=== PATIENT | male | born 1955 | race Caucasian/White ===

== ENCOUNTER → 2019-11-23 | Day surgery (SDC) | payer BC, OTHER ==
[2019-11-13 11:06] LABS: BASOPHILS % 0.8 % (0.0-1.0); EOSINOPHILS # (AUTO) 0.2 (0.0-0.4); HEMATOCRIT 40.9 % (38.2-49.6); HEMOGLOBIN 13.6 g/dL (14.0-18.0); LYMPHOCYTES # (AUTO) 0.8 (1.0-3.2); LYMPHOCYTES % 14.7 % (18.0-39.1); MEAN CORPUSCULAR HEMOGLOBIN 30.2 pg (28-32); MEAN CORPUSCULAR HGB CONC 33.3 g/dL (31-35); MEAN CORPUSCULAR VOLUME 90.7 fL (81-99); MONOCYTES # (AUTO) 0.6 (0.2-0.8); MONOCYTES % 11.9 % (4.4-11.3); NEUTROPHILS # (AUTO) 3.7 (2.1-6.9); NEUTROPHILS % 69.2 % (38.7-80.0); PLATELET COUNT 166 x10e3/uL (140-360); RED BLOOD COUNT 4.51 x10e6/uL (4.3-5.7); RED CELL DISTRIBUTION WIDTH 13.8 % (11.7-14.4)
[2019-11-13 11:24] LABS: ANION GAP 12.2 mmol/L (8-16); BLOOD UREA NITROGEN 11 mg/dL (7-26); BUN/CREATININE RATIO 11 (6-25); CALCIUM 9.7 mg/dL (8.4-10.2); CARBON DIOXIDE 28 mmol/L (22-29); CHLORIDE 101 mmol/L (98-107); CREATININE, SERUM 1.03 mg/dL (0.72-1.25); EST GLOMERULAR FILTRATION RATE > 60 ML/MIN (60-); GLUCOSE 114 mg/dL (74-118); POTASSIUM 4.2 mmol/L (3.5-5.1); SODIUM 137 mmol/L (136-145)
--- NOTE | 2019-11-13 12:18 | Diagnostic Imaging Report ---
Exam: CHEST 2 VIEWS Date: 11/13/2019 12:14 PM INDICATION: ^[id number] ^1140 ^PRE-OP Comparison: None FINDINGS: Lines/Tubes:None Lungs:The lungs are well inflated. No focal consolidation or pulmonary edema. Right hemidiaphragm is elevated with linear scarring versus atelectasis at the right lung base. Pleura:No pleural effusion. No pneumothorax. Heart/Mediastinum:The cardiomediastinal silhouette is normal in size and contour. Bones/Soft Tissues: No acute osseous abnormality. Moderate multilevel degenerative changes of the spine are noted. Upper abdomen: Unremarkable. IMPRESSION: Negative for focal consolidation. Right hemidiaphragm is elevated. Questionable 9 mm area of scarring versus nodularity at the right apex. Consider obtaining any prior imaging for comparison versus obtaining a nonemergent CT of the chest for further evaluation. Signed by: Paulo Hardy MD on 11/13/2019 12:15 PM
[~2019-11-23] MED LIST: ATORVASTATIN CA20 MG PO; BUPIVACAINE 0.25%/EPI 30ML SDV INJ ONE; DEXAMETHASONE SOD PHOS INJ 4 MG/ML VIAL ONE; EPHEDRINE SULFATE INJ 50 MG/ML VIAL ONE; FENTANYL CITRATE/PF 100MCG/2 ML INJ ONE; GLYCOPYRROLATE INJ 0.2 MG/ML VIAL ONE; HYDROCHLOROTHIA25 MG PO; KETAMINE HCL INJ 50 MG/ML 10 ML VIAL ONE; LEVOTHYROXINE112 MCG PO; LEXAPRO10 MG PO; LIDOCAINE HCL 1% LOCAL INJ 20 ML VIAL ONE; LIDOCAINE HCL 2% LOCAL INJ 5 ML SDV VIAL INJ ONE; LOSARTAN POTASS50 MG PO; MIDAZOLAM HCL 2 MG/2 ML VIAL ONE; NEOSTIGMINE 1 MG/ML 10ML VIAL ONE; ONDANSETRON HCL INJ 2MG/ML 2ML 2 MG/ML VIAL ONE; PROPOFOL IV EMULSION 10 MG/ML 20 ML VIAL ONE; PROTONIX20 MG PO; ROCURONIUM BROMIDE 10 MG/ML 5ML VIAL IV ONE; SEVOFLURANE INHAL SOLN 250 ML PEN BTL ONE; SUCCINYLCHOLINE CHLORIDE 20 MG/ML 10ML VIAL ONE
--- NOTE | 2019-11-23 07:20 | NUR ---
SPIRITUAL CARE - Pre-Surgery Assessment: Pt reported supportive attention from family and friends. Intervention: Gas System Operator provided pastoral presence, hospitality, and sympathetic listening. Acquainted pt with availability of brush polisher while hospitalized. Outcome: Pt expressed appreciation for visit. No need for follow up indicated at this time. SYL Perez Spiritual Care Department O: [phone]
--- NOTE | 2019-11-23 11:32 | Operative Report ---
DATE OF PROCEDURE: 11/23/2019 SURGEON: Shoaib Lima MD PREOPERATIVE DIAGNOSIS: Right inguinal hernia. POSTOPERATIVE DIAGNOSIS: Right direct inguinal hernia. OPERATION PERFORMED: Repair of right direct inguinal hernia. RESEARCH ENVIRONMENTAL ENGINEER: ARLET Castro. ANESTHESIA: General. COMPLICATIONS: None. ESTIMATED BLOOD LOSS: Minimal. DESCRIPTION OF PROCEDURE: With the patient lying in bed in the supine position under good general anesthesia, the abdomen was prepped with Betadine solution and draped in the usual manner. A right inguinal incision was made, it was carried down through the subcutaneous tissue down to the external oblique aponeurosis. External oblique was opened along the length of its fibers and the external inguinal ring was opened. The cord was then mobilized and retracted. Examination of the cord revealed a small lipoma of the cord, which was ligated with 3-0 Vicryl and divided. There was no indirect hernia sac present. There was, however, a complete blow out of the direct space from a large bulging direct hernia. The direct defect was then imbricated with a pursestring suture of 0 Ethibond. After this was done, the preperitoneal space was then entered right through the internal ring and a pocket was created without any difficulty. An extended Prolene hernia system was placed in the preperitoneal space and the underlay patch was deployed without any problems. The overlay patch was then placed over the floor and split inferolaterally to allow for passage of the cord. The mesh was then sutured to the conjoined tendon and the inguinal ligament using interrupted sutures of 2-0 Vicryl. The whole area was irrigated. Perfect hemostasis was ascertained. All layers were infiltrated on the way out with solution of 0.25% Marcaine and 1% lidocaine mixed in equal parts. The external oblique aponeurosis was closed with a running suture of 2-0 Vicryl, the subcutaneous tissue was approximated with 3-0 plain, and the skin was closed with clips. A dressing was applied. The sponge, lap, and needle counts were correct. The patient tolerated the procedure well and returned to the recovery room in stable condition. MD PATRICIA RamirezR/MODL /[id number]
[2019-11-23 11:55] VITALS: BP 124/71
== END | disposition home or self-care (01) ==
LOC: OR 07:00
PROVIDERS: ATTEND Surgery
DX: K40.90 Unilateral inguinal hernia, without obstruction or gangrene, not specified as recurrent (principal); D17.6 Benign lipomatous neoplasm of spermatic cord; G47.33 Obstructive sleep apnea (adult) (pediatric); I10 Essential (primary) hypertension; E03.9 Hypothyroidism, unspecified; Z01.810 Encounter for preprocedural cardiovascular examination; Z01.812 Encounter for preprocedural laboratory examination; Z01.818 Encounter for other preprocedural examination; Z11.59 Encounter for screening for other viral diseases; Z92.21 Personal history of antineoplastic chemotherapy; Z92.3 Personal history of irradiation
CPT/HCPCS: 36415; 49505; 71046; 80048; 85025; 93005; C1781; J0330; J1100; J2001 ×2; J2250; J2405; J2704; J2710; J3010; U0002 ×2

== ENCOUNTER → 2020-01-02 | Outpatient (CLI) | payer BC, MEDICARE ==
[~2020-01-02] MED LIST changes: +BENICAR20 MG PO; -BUPIVACAINE 0.25%/EPI 30ML SDV INJ ONE; -DEXAMETHASONE SOD PHOS INJ 4 MG/ML VIAL ONE; -EPHEDRINE SULFATE INJ 50 MG/ML VIAL ONE; -FENTANYL CITRATE/PF 100MCG/2 ML INJ ONE; -GLYCOPYRROLATE INJ 0.2 MG/ML VIAL ONE; -KETAMINE HCL INJ 50 MG/ML 10 ML VIAL ONE; -LIDOCAINE HCL 1% LOCAL INJ 20 ML VIAL ONE; -LIDOCAINE HCL 2% LOCAL INJ 5 ML SDV VIAL INJ ONE; -MIDAZOLAM HCL 2 MG/2 ML VIAL ONE; -NEOSTIGMINE 1 MG/ML 10ML VIAL ONE; -ONDANSETRON HCL INJ 2MG/ML 2ML 2 MG/ML VIAL ONE; -PROPOFOL IV EMULSION 10 MG/ML 20 ML VIAL ONE; -ROCURONIUM BROMIDE 10 MG/ML 5ML VIAL IV ONE; -SEVOFLURANE INHAL SOLN 250 ML PEN BTL ONE; -SUCCINYLCHOLINE CHLORIDE 20 MG/ML 10ML VIAL ONE; +ZETIA10 MG PO
== END ==
LOC: CT 13:45
PROVIDERS: ATTEND Surgery
DX: R91.8 Other nonspecific abnormal finding of lung field (principal); Z20.828 Contact with and (suspected) exposure to other viral communicable diseases
CPT/HCPCS: 71250; U0002

== ENCOUNTER → 2020-01-05 | Day surgery (SDC) | payer MEDICARE, BC, OTHER ==
[2020-01-02 15:10] LABS: BASOPHILS # (AUTO) 0.1 (0.0-0.1); BASOPHILS % 0.9 % (0.0-1.0); EOSINOPHILS # (AUTO) 0.2 (0.0-0.4); EOSINOPHILS % 3.8 % (0.0-6.0); HEMATOCRIT 40.9 % (38.2-49.6); HEMOGLOBIN 13.6 g/dL (14.0-18.0); LYMPHOCYTES # (AUTO) 0.8 (1.0-3.2); LYMPHOCYTES % 13.4 % (18.0-39.1); MEAN CORPUSCULAR HEMOGLOBIN 30.6 pg (28-32); MEAN CORPUSCULAR HGB CONC 33.3 g/dL (31-35); MEAN CORPUSCULAR VOLUME 91.9 fL (81-99); MONOCYTES # (AUTO) 0.7 (0.2-0.8); MONOCYTES % 12.5 % (4.4-11.3); NEUTROPHILS # (AUTO) 3.9 (2.1-6.9); PLATELET COUNT 153 x10e3/uL (140-360); RED BLOOD COUNT 4.45 x10e6/uL (4.3-5.7); RED CELL DISTRIBUTION WIDTH 13.2 % (11.7-14.4)
--- NOTE | 2020-01-02 15:19 | Diagnostic Imaging Report ---
Exam: CHEST 2 VIEWS Date: 01/02/2020 3:15 PM INDICATION: ^[id number] ^1500 ^PRE OP Comparison: 11/13/[address] chest performed the same day FINDINGS: Lines/Tubes:None Lungs:The lungs are well inflated. No focal consolidation or pulmonary edema. Stable right hemidiaphragm elevation Pleura:No pleural effusion. No pneumothorax. Stable questionable nodularity in the right apex. Heart/Mediastinum:The cardiomediastinal silhouette is normal in size and contour. Bones/Soft Tissues: No acute osseous abnormality. Upper abdomen: Unremarkable. IMPRESSION: Stable exam without acute intrathoracic process. Please see CT report of the same day for further details. Signed by: Paulo Hardy MD on 01/02/2020 3:16 PM
[2020-01-02 15:31] LABS: ANION GAP 12.9 mmol/L (8-16); BLOOD UREA NITROGEN 12 mg/dL (7-26); BUN/CREATININE RATIO 14 (6-25); CALCIUM 9.2 mg/dL (8.4-10.2); CARBON DIOXIDE 26 mmol/L (22-29); CHLORIDE 104 mmol/L (98-107); CREATININE, SERUM 0.86 mg/dL (0.72-1.25); EST GLOMERULAR FILTRATION RATE > 60 ML/MIN (60-); GLUCOSE 125 mg/dL (74-118); POTASSIUM 3.9 mmol/L (3.5-5.1); SODIUM 139 mmol/L (136-145)
[~2020-01-05] MED LIST changes: +ATROPINE SULFATE 1 MG/ML VIAL ONE; +BUPIVACAINE 0.25% 30ML SDV INJ ONE; +DEXAMETHASONE SOD PHOS INJ 4 MG/ML VIAL ONE; +FENTANYL CITRATE/PF 100MCG/2 ML INJ ONE; +KETOROLAC TROMETHAMINE 30 MG/ML VIAL ONE; +LIDOCAINE 1% W/EPINEPHRINE 20 ML VIAL ONE; +LIDOCAINE HCL 2% LOCAL INJ 5 ML SDV VIAL INJ ONE; +MIDAZOLAM HCL 2 MG/2 ML VIAL ONE; +NEOSTIGMINE 1 MG/ML 10ML VIAL ONE; +ONDANSETRON HCL INJ 2MG/ML 2ML 2 MG/ML VIAL ONE; +PROPOFOL IV EMULSION 10 MG/ML 20 ML VIAL ONE; +ROCURONIUM BROMIDE 10 MG/ML 5ML VIAL IV ONE; +SEVOFLURANE INHAL SOLN 250 ML PEN BTL ONE
--- NOTE | 2020-01-05 07:20 | NUR ---
SPIRITUAL CARE - Pre-Surgery Assessment: Pt in bed. Pt's at bedside. Pt reported supportive attention from family and friends. Intervention: Tail Worker provided pastoral presence, hospitality, and sympathetic listening. Acquainted pt with availability of early childhood assistant while hospitalized. Outcome: Pt expressed appreciation for visit. No need for follow up indicated at this time. SYL Esparzalain Spiritual Care Department O: [phone]
[2020-01-05 11:40] VITALS: BP 127/86
--- NOTE | 2020-01-05 11:44 | Operative Report ---
DATE OF PROCEDURE: 01/05/2020 SURGEON: Shoaib Lima MD PREOPERATIVE DIAGNOSES: Left inguinal hernia and umbilical hernia. POSTOPERATIVE DIAGNOSES: Left inguinal hernia and umbilical hernia. OPERATIONS PERFORMED: Repair of left inguinal hernia with extended Prolene Hernia System and repair of umbilical hernia with mesh. ANESTHESIA: General. COMPLICATIONS: None. ESTIMATED BLOOD LOSS: Minimal. DESCRIPTION OF PROCEDURE: With the patient lying in bed in the supine position under good general anesthesia, the abdomen was prepped with Betadine solution and draped in the usual manner. A left inguinal incision was made. It was carried down through the subcutaneous tissue down to the external oblique aponeurosis. External oblique was then opened along the length of its fibers and the external inguinal ring was opened. The cord was then mobilized and retracted, contained within the cord was a large lipoma of the cord, which was from the cord structures, ligated with 2-0 Vicryl and resected. There was no indirect hernia sac present. There was, however, a bulging hernia in the direct space. This was imbricated with a pursestring suture of 2-0 silk. After this was done, the preperitoneal space was then entered through the internal ring and a pocket was created without any difficulty. An extended Prolene Hernia System was placed in the preperitoneal space and the underlay patch was deployed without any problems. The overlay patch was then placed over the floor and split inferolaterally to allow for passage of the cord. The mesh was then sutured to the conjoined tendon and the inguinal ligament using interrupted sutures of 2-0 Vicryl. The whole area was thoroughly irrigated and perfect hemostasis was ascertained. All layers were infiltrated on the way out with solution of 0.25% Marcaine and 1% lidocaine mixed in equal parts. The external oblique aponeurosis was then closed with a running suture of 2-0 Vicryl. The subcutaneous tissue was approximated with 3-0 plain and the skin was closed with clips. The semilunar subumbilical incision was then made, carried down through the subcutaneous tissue. The hernia sac was identified and circumferentially dissected with normal fascia all the way around. The umbilicus was then detached from the hernia sac. The excess of the hernia sac and the properitoneal omentum was then resected and sent for pathological examination. A medium-size Ventralex patch was then placed through the defect and deployed intra-abdominally without any difficulty, and the defect was then closed transversely using interrupted sutures of 0 Ethibond, anchoring the mesh with the repair. This gave us a satisfactory closure without any tension. The whole area was then thoroughly irrigated and perfect hemostasis was ascertained. All layers were infiltrated on the way out with solution of 0.25% Marcaine. The umbilicus was then tacked back down to the midline fascia with 3-0 Vicryl. The subcutaneous tissue was approximated with 3-0 Vicryl and the skin was closed with interrupted vertical mattress sutures of 3-0 silk. A dressing was applied. The sponge, lap, and needle count was correct. The patient tolerated the procedure well and returned to the recovery room in stable condition. MD SUSANA Ramirez/DANIELLE /[id number]
== END | disposition home or self-care (01) ==
LOC: OR 06:29
PROVIDERS: ATTEND Surgery
DX: K40.90 Unilateral inguinal hernia, without obstruction or gangrene, not specified as recurrent (principal); K42.9 Umbilical hernia without obstruction or gangrene; I10 Essential (primary) hypertension; I25.10 Atherosclerotic heart disease of native coronary artery without angina pectoris; Z01.810 Encounter for preprocedural cardiovascular examination; Z01.812 Encounter for preprocedural laboratory examination; Z01.818 Encounter for other preprocedural examination
CPT/HCPCS: 36415; 49505; 49585; 71046; 80048; 85025; 88302; 93005; C1781 ×2; J0461; J1100; J1885; J2001; J2250; J2405; J2704; J2710; J3010; 88304